=== PATIENT | female | born 1960 | race Asian ===

== ENCOUNTER 2024-04-11 23:24 | Emergency (ER) | payer OTHER ==
[2024-04-11] MEDS: ACETAMINOPHEN TAB 650MG DOSE (2X325MG) PO ONE (23:47)
[2024-04-12] MEDS: ALBUTEROL 90 MCG/ACT 8GM HFA INHALER INH ONE (01:27)
[2024-04-12] MEDS: predniSONE 20 MG TAB PO ONE (01:27)
[2024-04-12] MEDS ORDERED: PRED20TA PO (02:49)
[2024-04-12 03:00] VITALS: BP 112/61; TEMP 99.2; O2SAT 95
== END 2024-04-12 03:00 | disposition left against medical advice (07) ==
LOC: M ED 23:24
DX: J20.9 Acute bronchitis, unspecified (principal); J12.2 Parainfluenza virus pneumonia; E11.9 Type 2 diabetes mellitus without complications; I10 Essential (primary) hypertension; E78.5 Hyperlipidemia, unspecified; F10.10 Alcohol abuse, uncomplicated; Z79.52 Long term (current) use of systemic steroids; Z88.8 Allergy status to other drugs, medicaments and biological substances
CPT/HCPCS: 71046; 87486; 87581; 87633; 87798; 99284; J7512

== ENCOUNTER → 2024-08-29 | Outpatient (CLI) | payer OTHER ==
[~2024-08-29] MED LIST: PRED20TA PO
== END ==
LOC: M WHC 08:35
PROVIDERS: ATTEND Family Medicine
DX: Z12.31 Encounter for screening mammogram for malignant neoplasm of breast (principal)

== ENCOUNTER → 2024-09-06 | Outpatient (CLI) | payer OTHER | LOC: M WHC 12:33 | PROVIDERS: ATTEND Family Medicine | DX: R92.8 Other abnormal and inconclusive findings on diagnostic imaging of breast (principal) ==

== ENCOUNTER → 2025-06-01 | Outpatient (CLI) | payer OTHER | LOC: M WHC 08:24 | PROVIDERS: ATTEND Family Medicine | DX: R79.89 Other specified abnormal findings of blood chemistry (principal); R16.0 Hepatomegaly, not elsewhere classified; R93.89 Abnormal findings on diagnostic imaging of other specified body structures ==

== ENCOUNTER → 2025-08-28 | Outpatient (CLI) | payer OTHER | LOC: M RAD 07:29 | PROVIDERS: ATTEND Family Medicine | DX: K82.8 Other specified diseases of gallbladder (principal) ==

== ENCOUNTER → 2025-09-20 | Outpatient (CLI) | payer OTHER | LOC: M WHC 11:52 | PROVIDERS: ATTEND Family Medicine | DX: Z12.31 Encounter for screening mammogram for malignant neoplasm of breast (principal); N63.0 Unspecified lump in unspecified breast | CPT/HCPCS: 76642; 77066; G0279 ==